=== PATIENT | female | born 1945 | race Caucasian/White ===

== ENCOUNTER → 2017-09-05 | Outpatient (CLI) | payer MEDICARE, MEDICAID | LOC: M.RAD 11:26 | DX: R07.9 Chest pain, unspecified (principal); R10.30 Lower abdominal pain, unspecified; M51.36 Other intervertebral disc degeneration, lumbar region; R07.81 Pleurodynia ==

== ENCOUNTER → 2018-03-19 | Outpatient (CLI) | payer MEDICARE, MEDICAID | LOC: M.LAB 09:14 → M.CT 11:00 | PROVIDERS: Family Medicine | DX: N28.9 Disorder of kidney and ureter, unspecified (principal); R10.31 Right lower quadrant pain ==